=== PATIENT | male | born 1955 | race Caucasian/White ===

== ENCOUNTER → 2017-08-11 | Outpatient (CLI) | payer OTHER | LOC: FIMAGING 14:04 | PROVIDERS: ATTEND Internal Medicine | DX: E78.00 Pure hypercholesterolemia, unspecified (principal); Z82.49 Family history of ischemic heart disease and other diseases of the circulatory system ==

== ENCOUNTER → 2018-09-16 | Outpatient (CLI) | payer BC | LOC: CLAB 11:39 → EDSTATUS 11:40 → CIMAGING 11:40 | PROVIDERS: ATTEND Internal Medicine | DX: R07.81 Pleurodynia (principal); R05 Cough | CPT/HCPCS: 71101-PO ==